=== PATIENT | male | born 1965 | race Caucasian/White ===

== ENCOUNTER 2018-10-19 19:49 | Emergency (ER) | payer BC, OTHER ==
[~2018-10-19] VITALS: Ht 188 cm; Wt 135.0 kg
[~2018-10-19 19:49] MED LIST: CARCD120C PO; CLAR250T PO; COU5T PO; COU7.5T PO; DILT360C29 PO; ENOX40SY7 SQ; GABAPENTIN; LORA1TAB PO; WARF-55 PO
--- NOTE | 2018-10-19 21:42 | NUR ---
DR LAWTON AT BEDSIDE WITH PT
[2018-10-19] MEDS ORDERED: PANT40TA4 PO (21:44)
[2018-10-19] MEDS ORDERED: APIX5TAB3 PO (21:44)
[2018-10-19] MEDS ORDERED: METO-384 PO (21:44)
[2018-10-19] MEDS ORDERED: LISI10TA4 PO (21:44)
[2018-10-19 22:03] VITALS: BP 111/46
== END 2018-10-19 22:55 | disposition home or self-care (01) ==
LOC: ER 19:49
DX: M79.604 Pain in right leg (principal); I48.91 Unspecified atrial fibrillation; I10 Essential (primary) hypertension; G89.29 Other chronic pain; F17.210 Nicotine dependence, cigarettes, uncomplicated; Z98.890 Other specified postprocedural states; Z86.718 Personal history of other venous thrombosis and embolism; Z79.01 Long term (current) use of anticoagulants; Z79.899 Other long term (current) drug therapy; Z88.8 Allergy status to other drugs, medicaments and biological substances
CPT/HCPCS: 76882; 99284

== ENCOUNTER 2020-10-21 14:18 | Emergency (ER) | payer OTHER ==
[~2020-10-21] VITALS: Ht 182.9 cm; Wt 127.3 kg
[~2020-10-21 14:18] MED LIST changes: +APIX5TAB3 PO; -CARCD120C PO; -CLAR250T PO; -COU5T PO; -COU7.5T PO; -DILT360C29 PO; -ENOX40SY7 SQ; -GABAPENTIN; +LISI10TA27 PO; -LORA1TAB PO; +METO-384 PO; +PANT40TA54 PO; -WARF-55 PO
[2020-10-21 14:59] VITALS: BP 173/103
[2020-10-21 16:07] LABS: BASOPHILS # (AUTO) 0.3 X10'3 (0-0.2); BASOPHILS % (AUTO) 2.6 % (0-1); EOSINOPHILS # (AUTO) 0.4 X10'3 (0-0.9); EOSINOPHILS % (AUTO) 4.1 % (0-6); HEMATOCRIT 43.8 % (42.0-52.0); HEMOGLOBIN 14.5 g/dl (14.0-17.9); LYMPHOCYTES # (AUTO) 2.6 X10'3 (1.1-4.8); LYMPHOCYTES % (AUTO) 26.5 % (21-51); MEAN CORPUSCULAR HEMOGLOBIN 30.2 PG (27.0-31.0); MEAN CORPUSCULAR HGB CONC 33.1 g/dL (33.0-36.5); MEAN CORPUSCULAR VOLUME 91.1 FL (78-98); MEAN PLATELET VOLUME 8.7 FL (7.4-10.4); MONOCYTES % (AUTO) 10.3 % (2-12); NEUTROPHILS # (AUTO) 5.6 X10'3 (1.8-7.7); NEUTROPHILS % (AUTO) 56.5 % (42-75); PLATELET COUNT 386 X10'3 (140-440); RED BLOOD COUNT 4.81 X10'6 (4.70-6.10); RED CELL DISTRIBUTION WIDTH 14.4 % (11.5-14.5); WHITE BLOOD COUNT 9.8 X10'3 (4.5-11.0)
[2020-10-21 16:17] LABS: ALANINE AMINOTRANSFERASE 60 U/L (12-78); ALBUMIN 3.4 G/DL (3.4-5.0); ALBUMIN/GLOBULIN RATIO 0.7 (1.1-1.5); ALKALINE PHOSPHATASE 99 IU/L (46-116); ANION GAP 7 (8-16); ASPARTATE AMINO TRANSFERASE 25 U/L (10-37); BILIRUBIN,TOTAL 0.1 MG/DL (0.1-1.0); BLOOD UREA NITROGEN 19 MG/DL (7-18); BUN/CREATININE RATIO 22.1 (5.4-32.0); CALCIUM 9.1 MG/DL (8.5-10.1); CHLORIDE 104 MMOL/L (99-107); CREATININE 0.86 MG/DL (0.60-1.10); GLUCOSE 98 MG/DL (70-104); POTASSIUM 4.1 MMOL/L (3.5-5.1); SODIUM 137 MMOL/L (135-145); TOTAL CARBON DIOXIDE 26.3 MMOL/L (24-32); eGFR > 90 ML/MIN
[2020-10-21] MEDS ORDERED: PRED10TA23 PO (16:40)
[2020-10-21] MEDS ORDERED: AMOX-117 PO (16:40)
[2020-10-21] MEDS ORDERED: FLUT16SP2 BOTHNARES (16:40)
== END 2020-10-21 17:08 | disposition home or self-care (01) ==
LOC: ER 14:19
DX: J32.0 Chronic maxillary sinusitis (principal); R51.9 Headache, unspecified; I48.91 Unspecified atrial fibrillation; I10 Essential (primary) hypertension; G89.29 Other chronic pain; Z86.718 Personal history of other venous thrombosis and embolism; Z72.89 Other problems related to lifestyle; Z88.8 Allergy status to other drugs, medicaments and biological substances; Z79.899 Other long term (current) drug therapy
CPT/HCPCS: 36415; 70450; 70486; 80053; 85025; 85651; 99285

== ENCOUNTER 2023-01-15 09:19 | Emergency (ER) | payer OTHER ==
[~2023-01-15] VITALS: Ht 182.9 cm; Wt 150.0 kg
[~2023-01-15 09:19] MED LIST changes: +FLUT16SP2 BOTHNARES
[2023-01-15 09:22] VITALS: BP 147/91
[2023-01-15] MEDS ORDERED: LIDOcaine 1% W/epiNEPHrine 1:100,000 20ml vial IJ ONE (10:25)
--- NOTE | 2023-01-15 10:50 | NUR ---
MARKUS SWIFT WITH I&D PROCEDURE.
[2023-01-15] MEDS ORDERED: CEPH-585 PO (11:00)
[2023-01-15] MEDS ORDERED: SULF1TAB49 PO (11:00)
== END 2023-01-15 11:07 | disposition home or self-care (01) ==
LOC: ER 09:19
DX: L02.214 Cutaneous abscess of groin (principal); I10 Essential (primary) hypertension; Z88.6 Allergy status to analgesic agent
CPT/HCPCS: 10060; 87070; 99283; A6266; A6449